=== PATIENT | male | born 1965 | race Caucasian/White ===

== ENCOUNTER 2016-08-19 15:48 | Emergency (ER) | payer BC ==
[~2016-08-19] VITALS: Ht 172.7 cm; Wt 86.2 kg
--- NOTE | 2016-08-19 16:11 | NUR ---
Incident reported to [facility] [id number] who stated she will dispatch officers to come speak with the pt about the incident.
--- NOTE | 2016-08-19 17:25 | NUR ---
Received call from [id number] who stated they are no officer available to come see pt at this time. Pt can go to [facility] or call [phone] and file a report. Information given to pt.
== END 2016-08-19 18:05 | disposition home or self-care (01) ==
LOC: ER 15:49
DX: R51 Headache (principal); Y08.89XA Assault by other specified means, initial encounter
CPT/HCPCS: 70450; A4663